=== PATIENT | male | born 1970 | race African-American/Black ===

== ENCOUNTER 2020-01-11 11:00 | Inpatient (IN) | payer OTHER ==
[~2020-01-11] VITALS: Ht 170.2 cm; Wt 81.6 kg
[~2020-01-11 11:00] MED LIST: Dexamethasone 20mg/5ml IVP ONE; ceFAZolin sod 1 GM in NS 55 ML IVPB ONE
[2020-01-18] VITALS (20 sets, daily range): BP systolic 118–157; BP diastolic 72–95
[2020-01-18] MEDS ORDERED: LR 1000ml 1,000 ML IVLG SCH (06:25)
[2020-01-18] MEDS ORDERED: Rocuronium Bromide 50mg/5ml Inj IV ONE (06:29)
[2020-01-18] MEDS ORDERED: HYDROcodone/Acetamin 5/325 tab ORAL PRN (06:30)
[2020-01-18] MEDS ORDERED: Ketorolac 30mg Inj IV PRN ×2 (06:30)
[2020-01-18] MEDS ORDERED: Labetalol 5mg/ml 20ml vial IV PRN (06:30)
[2020-01-18] MEDS ORDERED: Hydromorphone 0.5mg/0.5ml inj IVP PRN (06:30)
[2020-01-18] MEDS ORDERED: oxyCODONE HCL/Acetaminophen 5/325mg ORAL PRN (06:30)
[2020-01-18] MEDS ORDERED: HYDROcodone/Acetamin 7.5/325 tab ORAL PRN (06:30)
[2020-01-18] MEDS ORDERED: Metoclopramide 10mg/2ml Inj IVP PRN (06:30)
[2020-01-18] MEDS ORDERED: Acetaminophen (Non formulary) 100 ML IV ONE (06:30)
[2020-01-18] MEDS ORDERED: DiphenhydrAMINE 50mg/ml Inj IVP PRN (06:30)
[2020-01-18] MEDS ORDERED: fentaNYL 100 mcg/2 mL IV PRN (06:30)
[2020-01-18] MEDS ORDERED: Meperidine 25mg/0.5ml Inj (FOR RIGORS ONLY) IV PRN (06:30)
[2020-01-18] MEDS ORDERED: Midazolam 2mg/2ml Inj IVP PRN (06:30)
[2020-01-18] MEDS ORDERED: LORazepam Inj 2mg/ml 1ml IV PRN (06:30)
[2020-01-18] MEDS ORDERED: Atropine Sulfate 0.4mg/ml inj IVP PRN (06:30)
[2020-01-18] MEDS ORDERED: ATORVASTATIN CA80 MG ORAL (06:38)
[2020-01-18] MEDS ORDERED: Heparin 5000 units/ml inj ONE (06:43)
[2020-01-18] MEDS ORDERED: Thrombin 5000 units TOPIC ONE (06:43)
[2020-01-18] MEDS ORDERED: Bacitracin 50000 Units Vial ONE (06:43)
[2020-01-18] MEDS ORDERED: Ropivacaine 5mg/ml Vial 20ml INJ ONE (06:43)
[2020-01-18] MEDS ORDERED: Gelfoam Size TOPIC ONE (06:43)
[2020-01-18] MEDS ORDERED: Lidocaine 1% Plain 30 ml INJ ONE ×2 (06:43→06:52)
[2020-01-18] MEDS ORDERED: ASPIR 8181 MG ORAL (06:47)
[2020-01-18] MEDS ORDERED: HYDROCODON-ACE1 EA13 ORAL (06:47)
[2020-01-18] MEDS ORDERED: GABAPENTIN600 MG ORAL (06:47)
[2020-01-18] MEDS ORDERED: OMEPRAZOLE20 M2 ORAL (06:47)
[2020-01-18] MEDS ORDERED: LISINOPRIL10 MG ORAL (06:47)
--- NOTE | 2020-01-18 06:50 | Immediate Post-Op Evaluation ---
Immediate Post-Op Evalulation Immediate Post-Op Evalulation Procedure: ALIF L5-S1 Date of Evaluation: Jan 18, 2020 Time of Evaluation: 09:49 IV Fluids: 800 LR Blood Products: 0 Estimated Blood Loss: 50 Urinary Output: 200 Blood Pressure Systolic: 157 Blood Pressure Diastolic: 92 Pulse Rate: 89 Respiratory Rate: 16 O2 Sat by Pulse Oximetry: 100 Temperature (Fahrenheit): 97 Pain Score (1-10): 2 Nausea: No Vomiting: No Complications 0 Patient Status: awake, reacts, patent, extubated, none Hydration Status: adequate Dru Grams Ancef IV Given Within 1 Hr of Incision: Yes Time Given: 07:31 Calderon Sinclair MD Jan 18, 2020 06:49
[2020-01-18] MEDS ORDERED: Lidocaine 1% MPF 10mg/ml 5ml ONE (06:51)
[2020-01-18] MEDS ORDERED: Dexamethasone 4mg/ml vial ONE (06:51)
[2020-01-18] MEDS ORDERED: Sodium Chloride 10ml vial INJ ONE (06:51)
[2020-01-18] MEDS ORDERED: fentaNYL 100 mcg/2 mL IV ONE (06:52)
[2020-01-18] MEDS ORDERED: Sterile Water Irrig 1000ml IRRIG ONE (07:00)
[2020-01-18] MEDS ORDERED: LR 1000ml ONE (07:00)
[2020-01-18] MEDS ORDERED: NS Irrig 1000ml ONE (07:00)
[2020-01-18] MEDS ORDERED: Dexamethasone 20mg/5ml IVP ONE (07:00)
[2020-01-18] MEDS ORDERED: Neostigmine 1mg/ml 10ml Inj ONE (07:00)
[2020-01-18] MEDS ORDERED: ceFAZolin sod 1 GM in NS 55 ML IVPB ONE (07:00)
[2020-01-18] MEDS ORDERED: Propofol 200mg/20ml IV ONE (07:00)
--- NOTE | 2020-01-18 07:10 | Anethesia Preoperative Eval ---
Anesthesia Pre-op PMH/ROS General Date of Evaluation: Jan 18, 2020 Time of Evaluation: 07:06 Anesthesiologist: Dottie ASA Score: ASA 2 Mallampati Score Class I : Soft palate, uvula, fauces, pillars visible Class II: Soft palate, uvula, fauces visible Class III: Soft palate, base of uvula visible Class IV: Only hard plate visible Mallampati Classification: Class II Surgeon: Domingo Diagnosis: Back Pain Surgical Procedure: ALIF L5-S1 Anesthesia History: none Family History: no anesthesia problems Allergies: Coded Allergies: No Known Allergies (Unverified , 01/18/20) Medications: see eMAR Patient NPO?: Yes NPO Date: Jan 17, 2020 NPO Time: 1999 Past Medical History Cardiovascular: Reports: HTN Neurologic/Psychiatric: Reports: depression/anxiety Anesthesia Pre-op Phys. Exam Physician Exam Last Vital Signs Date Time Temp Pulse Resp B/P (MAP) Pulse Ox O2 Delivery O2 Flow Rate FiO2 01/18/20 06:55 Room Air 01/18/20 06:34 97.4 65 18 124/82 (96) 99 Constitutional: NAD Neurologic: CN 2-12 intact Cardiovascular: RRR Respiratory: CTA Gastrointestinal: S/NT/ND Airway Exam Mallampati Score: Class II MO: full ROM: full Teeth: missing Anesthesia Pre-op A/P Risk Assessment & Plan Assessment: ASA 2 Plan: GA, SED, GlideScope Status Change Before Surgery: No Pre-Antibiotics Dru Grams Ancef IV Given Within 1 Hr of Incision: Yes Time Given: 07:31 Calderon Sinclair MD Jan 18, 2020 07:09
--- NOTE | 2020-01-18 07:10 | 48 Hour Post Anesthesia Eval ---
Post Anesthesia Evaluation Procedure: ALIF L5-S1 Date of Evaluation: Jan 18, 2020 Time of Evaluation: 12:12 Blood Pressure Systolic: 134 0: 81 Pulse Rate: 82 Respiratory Rate: 18 Temperature (Fahrenheit): 98 O2 Sat by Pulse Oximetry: 100 Airway: patent Nausea: No Vomiting: No Pain Intensity: 2 Hydration Status: adequate Cardiopulmonary Status: Stable Mental Status/LOC: patient returned to baseline Follow-up Care/Observations: 0 Post-Anesthesia Complications: 0 Follow-up care needed: N/A Calderon Sinclair MD Jan 18, 2020 07:10
--- NOTE | 2020-01-18 07:10 | Pre-Procedure Note/Attestation ---
Pre-Procedure Note/Attestation Complete Prior to Procedure Planned Procedure: not applicable Procedure Narrative: ALIF L5-S1 anterior plate fixation possible posterior Pedicle screw instrumentation Indications for Procedure Pre-Operative Diagnosis: severe post trauma LS spine pain, instability. Attestation I attest that I discussed the nature of the procedure; its benefits; risks and complications; and alternatives (and the risks and benefits of such alternatives ), prior to the procedure, with the patient (or the patient's legal civil rights representative). I attest that, if there was a reasonable possibility of needing a blood transfusion, the patient (or the patient's legal civil rights representative) was given the [facility] standardized written summary, pursuant to the Jose R Kp Blood Safety Act ([place] Health and Safety Code # 1645, as amended). I attest that I re-evaluated the patient just prior to the surgery and that there has been no change in the patient's H&P, except as documented below: Carlos Manuel Lane MD Jan 18, 2020 07:10
[2020-01-18] MEDS ORDERED: DICLOFEN 3%-HYA30 GM TP (07:21)
[2020-01-18] MEDS ORDERED: HYDROcodone/Acetamin 10/325 tab ORAL PRN (08:15)
[2020-01-18] MEDS ORDERED: DiphenhydrAMINE 25mg Tab ORAL PRN (08:15)
[2020-01-18] MEDS ORDERED: PCA Education Pamphlet MISC ONE (08:15)
[2020-01-18] MEDS ORDERED: HYDROmorphone 1mg/ml Carpuject SUBQ PRN (08:15)
--- NOTE | 2020-01-18 08:15 | Consultation ---
DATE OF CONSULTATION: 01/18/2020 CONSULTING PHYSICIAN: Ramon Vasquez M.D. REFERRING PHYSICIAN: Carlos Manuel Lane M.D. REASON FOR CONSULTATION: Acute pain consult. Dear Dr. Carlos Manuel Lane, Thank you kindly for consulting me to evaluate and render an opinion as to how to proceed in the management of the patient's acute postoperative lumbar spine pain after his lumbar spine fusion surgery today with instrumentation. The patient is a pleasant gentleman, who injured his lumbar spine after a [id number] incident at [facility] in [place]. You consulted me to help with this patient's pain control postoperatively. I saw the patient at bedside with the nurse, MUMTAZ Charlton. I discussed the case with yourself, Dr. Lane, along with the hospital pharmacist and the orthopedic floor charge nurse. I reviewed multiple records from the patient's medical chart including preoperative records from Dr. Stein along with diagnostic testing from December 2019. I reviewed multiple records from today's date of surgery at [facility], January 18, 2020, including records from the surgery suite, the pharmacy, and nursing department. PAST MEDICAL HISTORY: 1. Acute lumbar spine pain with a scheduled lumbar spine fusion surgery with instrumentation by Dr. Carlos Manuel Lane in December 2019. 2. Slip and fall accident. 3. GERD. 4. Hypertension. 5. Hyperlipidemia. 6. Kidney stones. ALLERGIES: Tramadol. PAST SURGICAL HISTORY: Carpal tunnel surgery and diagnostic laparotomy in 1982 to check for internal bleeding. SOCIAL HISTORY: The patient drinks alcohol socially. He denies cigarette usage, but does smoke several cigars each day. He also uses medical marijuana for pain control on a regular basis. REVIEW OF SYSTEMS: Per Dr. Stein. FAMILY HISTORY: Noncontributory. PHYSICAL EXAMINATION: VITAL SIGNS: Age 49. Height 5 feet 7 inches Weight 177 pounds. Body-mass index 28. Vital signs in the medical record. GENERAL: Pleasant demeanor. HEENT: Normocephalic and atraumatic. Extraocular muscles intact. No Cuellar palsy. No Dee syndrome. Poor dentition. EXTREMITIES: Moving all extremities x4. NEUROLOGIC: Detailed neurologic exam per Dr. Lane. MUSCULOSKELETAL: Pain with range of motion of lumbar spine. CHEST: Clear to auscultation. HEART: Regular rate and rhythm. Positive S4. Normal S1, S2. No S3 appreciated. GENITOURINARY: Deferred. DIAGNOSTIC TESTING: Shows laboratory studies from December 27, 2019, glucose 71, BUN 20, creatinine 1.1, sodium 140, potassium 4.2, chloride 108, bicarb 21, calcium 9.0. Total protein 7.9, albumin 4.1. Total bilirubin 0.4, alkaline phosphatase 86, AST 27, AST 23. Hemoglobin A1c 5.9. PTT 32, INR 1.0. White count 9, hematocrit 44, platelets 270,000. Urinalysis, negative. MRSA screening from the nasal, negative. Urine culture, negative. Hepatitis B and C and HIV, all negative. Preoperative 12-lead EKG shows heart rate 59, normal sinus rhythm, no evidence for acute cardiac ischemia. Echocardiogram shows mild global hypokinesis with an ejection fraction of 45% to 50%. Cardiac stress testing shows clinically negative for ischemia. EKG, negative for ischemia. Preoperative chest x-ray on December 27, 2019, shows normal chest exam. IMPRESSION: 1. Acute lumbar spine pain with a scheduled lumbar spine fusion surgery with instrumentation by Dr. Carlos Manuel Lane in December 2019. 2. Slip and fall accident. 3. GERD. 4. Hypertension. 5. Hyperlipidemia. 6. Kidney stones. TREATMENT RECOMMENDATIONS: I have recommended the following analgesic plan to help with this patient's pain control postoperatively. Recently, the patient has been using [place] 10/325 tablets at home up to 4 tablets a day. He states he has no side effects from this medication. His only allergy is tramadol. I will start him on a Dilaudid DEPARTMENT SUPERVISOR with 0.2 mg demand dose at 10-minute lockout and a 4 mg 4-hour limit. Additionally, I have ordered breakthrough dose of Dilaudid 1 mg subcutaneously every three hours p.r.n. for severe breakthrough pain. The patient does use [place] tablets without any difficulty. I have ordered [place] 10/325 one tablet orally every three hours p.r.n. for [id number] pain. The patient denies using 2 tablets at a time, so I would hold off on this dosing for now of using 2 tablets. Hopefully, the usage of the Dilaudid DEPARTMENT SUPERVISOR with p.r.n. subcutaneous Dilaudid and oral 1 tablet of [place] will be sufficient. I will add ynhsm-yyv-yrvyp Marinol 2.5 mg every 8 hours to help provide baseline analgesia, as the patient can tolerate medical marijuana at home without difficulties. He does not appear to be anxious. I would hold off on the class of benzodiazepines at this time. I will make available Soma 350 mg orally every 8 hours in case of muscle spasm symptoms. I will add Tylenol as an antipyretic. With his smoking history, I would definitely recommend an incentive spirometer in order to encourage good pulmonary toilet. He does use Prilosec on daily basis. I have ordered 40 mg of Protonix nightly for GI ulcer prophylaxis. I have also ordered p.r.n. dose of Mylanta 30 mL q.6 hours in case of any GERD symptom exacerbation. I have ordered Benadryl 25 mg orally every 6 hours in case of any itching complaints. I have ordered Zofran 4 mg intravenously every 4 hours p.r.n. as a rescue antiemetic. I will defer DVT prophylaxis to the surgeon. I will provide p.r.n. dose of clonidine in case of hypertensive issues. I will also restart the patient's baseline Neurontin at the 600 mg dose 3 times a day, which the patient has been using on a regular basis. We will follow the patient's advancement with physical therapy as well as advancement with zoroastrian of bowel function after the patient's ALIF surgical procedure. Ramon Vasquez M.D. DR: Wilmar JOB#: [id number] CC:
--- NOTE | 2020-01-18 09:08 | NUR ---
CASE MANAGEMENT: INITIAL REVIEW 49 YO M PRESENTED TO HOSPITAL FROM HOME FOR SURGERY PMHx: Acute lumbar spine pain with a scheduled lumbar spine fusion surgery with instrumentation by Dr. Carlos Manuel Lane in December 2019. Slip and fall accident. GERD. Hypertension. Hyperlipidemia. SI:LUMBAR INSTABILITY T 97.4 HR 65 RR 18 B/P 124/82 SATS 99% ON RA LABS: NONE IS: OR MEDS PATIENT ADMITTED TO SAME DAY SURGERY 01/18/2020 @ DCP: HOME PLAN OF CARE: Procedure: ALIF L5-S1 Addendum: 01/18/20 at 0913 by Gely Jefferson CM INTERSWATHI YEH
[2020-01-18] MEDS ORDERED: Glycopyrrolate 0.2mg/ml 1ml Vial ONE (09:10)
[2020-01-18] MEDS: D5 1/2NS 1,000 ML IV SCH ×3 (09:11→23:56)
--- NOTE | 2020-01-18 09:11 | Brief Operative Note ---
Immediate Post Operative Note Operative Note Pre-op Diagnosis: severe post trauma LS spine pain, instability. Procedure: Hemivertebrectomy L5 ALIF L5-S1 Anterior Plate L5-S1 interbody device osteopromotive materal xray magnification Post-op Diagnosis: same as pre-op Findings: consistent w/pre-op dx studies Surgeon: oDmingo MCCULLOUGH Additional Surgeons: Noel MCCULLOUGH Anesthesiologist: Dottie MCCULLOUGH Anesthesia: general Specimen: yes Complications: none Condition: stable Fluids: anesthesia Estimated Blood Loss: minimal Drains: none Implant(s) used?: Yes Carlos Manuel Lane MD Jan 18, 2020 09:11
[2020-01-18] MEDS ORDERED: Naloxone 0.4mg/ml Inj IVP PRN (11:00)
[2020-01-18] MEDS ORDERED: Rate Change PCA 1 Each MISC PRN (11:00)
[2020-01-18] MEDS ORDERED: PCA HYDROmorphone 1mg/ml 30 ML IV PRN (11:00)
--- NOTE | 2020-01-18 11:00 | NUR ---
NURSE NOTES: patient transferred from OPS placed to [facility]- with stable condition via hospital bed. received report from Sana/PACU. s/p ALIF L5-S1. under Dr. Vasquez care. alert and oriented. verbally responsive. dressing on anterior lower abd, dressing intact. no bleeding noted. no respiratory distress noted on 2L via NC. pain on abd with JOB CHECKER pump. IV on RFA running LR. F/C draining. intact, yellow. clear. SCD on bilat lower extremities. checked and counted belongings with OPS nurse and patient. bed in the lowest position and locked. call light within reach. will continue to provide plan of care.
--- NOTE | 2020-01-18 11:29 | Operative Note - Dictated ---
DATE OF OPERATION: 01/18/2020 VASCULAR SURGEON: Moe Cohen M.D. SPINE SURGEON: Carlos Manuel Lane M.D. PREOPERATIVE DIAGNOSIS: Lumbar pain. POSTOPERATIVE DIAGNOSIS: Lumbar pain.` PROCEDURE PERFORMED: Anterior retroperitoneal exposure of L5-S1, right retroperitoneal approach. INDICATIONS: A very pleasant gentleman, who was seen in my office prior to surgery. He has had a prior laparotomy for intra-abdominal bleeding after blunt trauma over 10 years ago. He denies any history of deep venous thrombosis or bleeding complications. He has had no prior anterior spine surgery, history of deep venous thrombosis or bleeding complications were described. He has been made aware of the risks of vascular surgery including vascular injury, possible blood transfusion, and deep venous thrombosis. DESCRIPTION OF FINDINGS: A low vertical midline incision was used. A right retroperitoneal approach was used. There was no peritoneal or ureteral violation. There was no vascular injury. Exposure of L5-S1 was obtained below the iliac bifurcation and confirmed via fluoroscopy. On completion, the peritoneum and ureter were intact. The iliac vessels are intact. Blood loss was less than 50 mL. The patient has palpable femoral pedal pulses and normal pulse oximetry and neurologic monitoring in both extremities on completion. DESCRIPTION OF PROCEDURE: The patient was taken to the operating room. General anesthesia was used. Antibiotics were given. The patient had been prepped and draped. Appropriate time-out for procedure were taken. A low vertical midline incision made infraumbilically. The anterior fascia was incised longitudinally in the midline. A plane was identified posterior to the right rectus abdominis developed posterolaterally towards the patient's right. Retroperitoneal space was entered below the arcuate line. The peritoneum and ureter were mobilized towards the patient's left exposing the right common iliac artery and vein. Dissection was carried superiorly around the right iliac vessels towards the anterior surface of L5-S1 palpated. The peritoneum and ureter were swept towards the patient's left exposing the anterior surface of L5-S1. The medial border of the left iliac vein was visualized and swept laterally and then the Omni retractor blades were set in place. Fluoroscopy was then used to confirm the appropriate level and instrumentation performed at L5-S1 dictated separately. On completion, retractor gently removed. The peritoneum and ureter were intact. Iliac vessel intact. The anterior fascia was then closed with #1 PDS in a running fashion and the skin, subcutaneous tissue were closed with 3-0 Vicryl and 4-0 Monocryl running subcuticular closure technique. Estimated blood loss less than 50 mL. Complications, none. Moe Cohen M.D. DR: ANGEL JOB#: [id number] CC:
--- NOTE | 2020-01-18 13:47 | Diagnostic Imaging Report ---
Indication: Back pain Technique: Intraoperative fluoroscopic imaging submitted for archival the PACS Operating physician: Tello Lane Total fluoroscopy time: 21.4 seconds Total fluoroscopy dose: 13.16 mGy Total number of fluoroscopic images submitted to PACS: 3 Comparison: None Findings: Intraoperative fluoroscopic imaging submitted for archival the PACS. Images demonstrate anterior fusion at L5-S1 by means of an anterior plate affixed by 2 screws at each level. There is also an interbody disc spacer. Please see operative report IMPRESSION: Intraoperative fluoroscopic imaging from spinal surgery. Please see operative report.
[2020-01-18] MEDS: Dronabinol 2.5mg Cap ORAL SCH ×2 (13:59→21:02)
[2020-01-18] MEDS: ceFAZolin sod 1 GM in D5W 55 ML IV SCH ×2 (16:50→23:56)
--- NOTE | 2020-01-18 17:56 | NUR ---
NURSE NOTES: patient was tolerated well with liquid diet for lunch and dinner. no n/v, feeling comfortable. advanced diet to regular from on 01/19/[address] order. order noted and carried out.
--- NOTE | 2020-01-18 18:56 | NUR ---
NURSE NOTES: Spoke to regarding patient and new order received. Order read back and carried out.
--- NOTE | 2020-01-18 19:00 | NUR ---
NURSE NOTES: Received report from MUMTAZ Romero. AAO x 4, on room air. Able to make needs known. Pt c/o pain 5/10 on back. Pain controlled by SOLID WASTE ANALYST. IV site intact and running IVF. No acute distress noted. Bed locked, lowest position, alarm on , side rails up, call light within reach. Will continue to monitor.
[2020-01-18] MEDS: PCA shift volume MISC SCH (19:07)
--- NOTE | 2020-01-18 19:20 | NUR ---
HAND-OFF: Report given to MUMTAZ Lerma
--- NOTE | 2020-01-18 19:45 | Operative Note - Dictated ---
DATE OF OPERATION: 01/18/2020 ADMITTING/PREOPERATIVE DIAGNOSES: Posttraumatic back pain, lumbar spine instability. POSTOPERATIVE DIAGNOSES: Posttraumatic back pain, lumbar spine instability. SURGEON: Carlos Manuel Lane, Ph.D., M.D. CO-SURGEON: Moe Cohen, Vascular Surgery. Please see separate report with Dr. Lane as financial sales assistant for exposure and closure. OPERATIVE PROCEDURE: 1. Diego vertebrectomy L5. 2. Anterior lumbar interbody fusion. 3. Correction deformity L5-S1. 4. Anterior internal plate fixation L5-S1. 5. Placement of titanium interbody device without internal fixation screws in the interbody device. 6. Placement of osteopromotive material L5-S1. 7. Intraoperative fluoroscopy/x-rays interpreted by surgeon. 8. High-powered magnification dissection. 9. SSEP monitoring. ANESTHESIOLOGIST: Calderon Sinclair M.D. general with intubation. ESTIMATED BLOOD LOSS: 50 mL. COMPLICATIONS: None. POSTOP CONDITION: Good/stable. SPECIMEN: Disk fragments to pathology. PROCEDURE IN DETAIL: The patient was brought to the operating room and in the supine position, general anesthesia with intubation was induced. IV antibiotics, IV Decadron were administered 30 minutes prior to incision time. With the patient in the supine position, the anterior abdomen was sterilely prepped and draped free in usual sterile fashion. Anterior incision was placed by Dr. Cohen sharply through dermis and epidermis. Please see separate report. L5-S1 interval was exposed and identified in the AP and lateral planes with a spinal needle placed into the disk space. Fluoroscopic imaging under strict sterile conditions. Determination of midline as well as correct level. A vertebral body defect was noted inferior L5 in the AP dimensions to the posterior aspect of the vertebral body. After formal annulotomy followed with diskectomy to but not through the posterior longitudinal ligament and denuding of the endplates of cartilaginous end plates, the defect was noted to be subset. Interbody reconstruction could not be undertaken with a step-off in the inferior L5 vertebral body. Under high-power magnification, a diego vertebrectomy was performed at the inferior aspect of the L5 vertebral body with fluoroscopic assisted guidance. Trials were utilized to determine graft requirements with a 16 mm titanium lordotic graft utilized. The graft was packed internally with osteopromotive material with local autograft. Under direct nntnpzgykve-dodx-pjlyohq magnification and fluoroscopic guidance, the graft was impacted into the interspace. SSEP monitoring stable at all times. Anterior internal plate fixation was undertaken in compressive fashion placed from the L5 to the S1 interval with fluoroscopic guidance utilizing AP and lateral planes. Screws in the body position of L5 and S1 were undertaken. excellent. Locked into position. Wound was irrigated with antibiotic-containing saline. Exploration did not reveal any obvious laceration or excoriation of vital structures. Please see separate note for closure, Dr. Cohen. After closure of the abdomen and placement of bandage, the patient was awakened and extubated in the operating room, and transported to postop recovery in good stable condition. Carlos Manuel Lane M.D. DR: GABBY JOB#: [id number] CC:
[2020-01-19] VITALS (7 sets, daily range): BP systolic 108–126; BP diastolic 55–86
[2020-01-19] MEDS: Dronabinol 2.5mg Cap ORAL SCH ×3 (06:04→20:47)
[2020-01-19] MEDS: ceFAZolin sod 1 GM in D5W 55 ML IV SCH (06:30)
[2020-01-19] MEDS: PCA shift volume MISC SCH ×2 (07:10→19:23)
--- NOTE | 2020-01-19 07:15 | NUR ---
HAND-OFF: Report given to MUMTAZ Ferrer.
--- NOTE | 2020-01-19 07:45 | NUR ---
NURSE NOTES: Patient awake, alert x4; on room air, no sing of distress and shortness of breath; no sing of chest pain; IV Right For-Arm 18G D51/2NS @125cc running; Hilton in place, drains yellow urine; dressing at the abdomen dry and intact; SAMPLE BOX MAKER Volume 25.3cc; side rails up x2, breaks engaged, bed at lowest position, breaks engaged; call light within reach; will keep monitoring.
[2020-01-19] MEDS: Lisinopril 10mg tab ORAL SCH (08:25)
[2020-01-19] MEDS: Tamsulosin 0.4mg cap ORAL SCH (08:26)
--- NOTE | 2020-01-19 08:45 | Progress Note ---
DATE: 01/19/2020 ACUTE PAIN MANAGEMENT PHYSICIAN PROGRESS NOTE MEDICATIONS: Medication administration record reviewed. Medications include IV fluids, lisinopril, Flomax, Protonix, Neurontin, Marinol, Dilaudid UNIT CONTROL WORKER. P.r.n. medications include [place], Dilaudid, Soma, Tylenol, Benadryl, Zofran, Mylanta, Catapres, Narcan. LABORATORY STUDIES: No interval laboratory studies. PHYSICAL EXAMINATION: VITAL SIGNS: Blood pressure 113/70, respirations 18, pulse 78, afebrile, oxygen saturation 97%. I spent over 60 minutes in consultation today. I saw the patient at the bedside with the charge nurse RN, Ophelia. I discussed the case with the surgeon, Dr. Lane. After the patient's ALIF surgery procedure yesterday, the patient is doing very well. He denies any nausea symptoms. I spoke with the recovery room nurse RN, Charli. We started the Dilaudid UNIT CONTROL WORKER in the recovery room and the patient has been responding well after his anterior internal plate fixation procedure at L5-S1. He remains on clear liquid diet until we received notifications from the patient that he has improved bowel function. He has minimal bowel sounds, he is not yet burping, and certainly is not passing flatus. He has tolerated a clear liquid tray yesterday for lunch and for dinner. We will continue him on clear liquids for now and we may advancing to full liquids later in the day. He will continue on IV fluids for hydration and the patient is drinking well. I will restart his lisinopril in case of hypertension. He chronically uses lisinopril 10 mg daily. His blood pressure readings here in the hospital have been reasonable, and the patient also has a p.r.n. dose of clonidine available as needed. The patient continues to use his Dilaudid UNIT CONTROL WORKER, which I would continue this morning. Later in the day, I will discontinue the UNIT CONTROL WORKER and transition him on to oral [place] pills, which he can tolerate on empty stomach at home. Additionally, I have added p.r.n. doses of Soma and subcutaneous Dilaudid available. The patient denies anxiety and does not appear to be anxious. This class of agents should not be necessary at this time. Physical therapy training, we will start later today. Hopefully with improved ambulation, the patient will have improved bowel function. So, we can advance his diet to help expedite discharge planning. The patient's last bowel movement was 48 hours ago. Currently, the patient will be held from the laxatives until the surgeon, Dr. Lane permits. I left the prescription for [place] for outpatient usage. The patient will have assistance with his daughter once he discharges from the hospital. The patient agrees with the plan. Ramon Vasquez M.D. DR: ROSA JOB#: [id number] CC:
--- NOTE | 2020-01-19 09:00 | NUR ---
NURSE NOTES: Patient encouraged to use Incentive Spirometer; patient teaching provided at the bed side; Patient returned demonstration. Will keep monitoring.
[2020-01-19] MEDS: D5 1/2NS 1,000 ML IV SCH (09:06)
--- NOTE | 2020-01-19 10:00 | NUR ---
PT Note PT silas completed, treatment initiated. Patient is very cooperative and motivated. Patient needs PT to educate and instructed on proper body mechanics and proper log rolling techniques to enable him to return home. Addendum: 01/19/20 at 1603 by STEVE PACHECO PT Amended: Links added.
--- NOTE | 2020-01-19 12:30 | NUR ---
NURSE NOTES: Patient stated that he is able to pass gas.
--- NOTE | 2020-01-19 15:31 | NUR ---
NURSE NOTES: MD Vasquez called and gave me the order to change patient's diet for dinner and tomorrow breakfast; also change the rate of the continuous fluid patient getting; Order carried out as order given by MD Vasquez;
--- NOTE | 2020-01-19 15:32 | NUR ---
NURSE NOTES: Per MD Vasquez, I removed NC 3 Liter and re-asses patient; patient sat 97% at room air; will keep monitoring.
[2020-01-19] MEDS ORDERED: D5 1/2NS 1,000 ML IV SCH (16:00)
--- NOTE | 2020-01-19 19:15 | NUR ---
NURSE NOTES: Received patient on bed, awake and verbally responsive. on room air, no sob. with iv line on the right forearm running d5 1/2 ns @ 50 ml. with davidson catheter in placed draining well. with hot mill roller of hydromorphone. per previous nurse" the diet was changed to regular". with intact dressing. reiterated to call or ask for help or use the call light. bed locked and in lowest position. call light and light button within easy reach. will continue plan of care.
--- NOTE | 2020-01-19 19:27 | NUR ---
HAND-OFF: Report given to MUMTAZ Garcia.
[2020-01-20] VITALS: BP 121/73
--- NOTE | 2020-01-20 01:21 | NUR ---
NURSE NOTES: patient is sleeping comfortably on bed. no sob. with ongoing ivf of d5 1/2 ns @ 50. with davidson cath in placed. bed locked and in lowest position. call light and light button within easy reach. will continue plan of care.
[2020-01-20 04:00] VITALS: BP 130/70
[2020-01-20] MEDS: Dronabinol 2.5mg Cap ORAL SCH ×2 (05:51→13:59)
--- NOTE | 2020-01-20 06:44 | NUR ---
at 0600 am d.c davidson catheter as ordered. at 06:[address] krueger with an order to d/c international broadcast music librarian and iv fluid and shift to heplock.charge nurse made aware. Addendum: 01/20/20 at 0700 by Keisha Murillo RN NURSE NOTES:
--- NOTE | 2020-01-20 07:20 | NUR ---
HAND-OFF: Report given to shoaib gibbs.
--- NOTE | 2020-01-20 07:30 | NUR ---
NURSE NOTES: Received report from Keisha Paniagua RN. Patient A&Ox4. On room air, no signs of distress or labored breathing. IV intact, patent, and saline locked. Complains of pain. Bed in lowest position with call light in reach. Will continue with plan of care.
[2020-01-20 08:00] VITALS: BP 127/89
[2020-01-20] MEDS: Lisinopril 10mg tab ORAL SCH (09:00)
[2020-01-20] MEDS ORDERED: Docusate 100mg cap ORAL SCH (09:00)
[2020-01-20] MEDS: Tamsulosin 0.4mg cap ORAL SCH (09:00)
--- NOTE | 2020-01-20 10:15 | Progress Note ---
DATE: 01/20/2020 ACUTE PAIN MANAGEMENT PHYSICIAN PROGRESS NOTE MEDICATIONS: Medication administration record reviewed. Medications include Tylenol, Mylanta, Soma, Catapres, Benadryl, Marinol, Neurontin, [place], Dilaudid, Zestril, Protonix, Flomax, and Zofran. LABORATORY STUDIES: No interval laboratory studies. VITAL SIGNS: Within normal limits. Afebrile, pulse 78, respirations 20, blood pressure 130/70, and oxygen saturation 96% on room air. I spent over 60 minutes in consultation today. I saw the patient at bedside and discussed the case with the surgeon, Dr. Lane, along with the charge nurse, MUMTAZ Riuz. I saw the patient at the bedside with the nurse, MUMTAZ Paniagua. Yesterday, the patient started passing positive flatus. He tolerated full-liquid diet for lunch and I advanced him to chopped meal for dinner. This also was well tolerated with no nausea symptoms. We will advance to regular diet this morning. I have added Colace as a stool softener to help with his upcoming bowel movement. We will continue to wait for complete orthodoxy of bowel function as evidenced by positive bowel movement before he is able to discharge home from the hospital The patient has been ambulating very well with physical therapy. He moves in and out of bed with relative ease, albeit postoperative pain. He is using the scheduled Marinol with good efficacy. I have decided to stop the HYDROELECT[employer]IC PLANT ELECTRICAL ENGINEER this morning to encourage movement in and out of bed. Since he also is drinking adequate oral fluid intake, I will Hep-Lock his IV fluids. The patient is able to ambulate greater than 200 feet in the hallways. We would remove the Hilton catheter this morning and we will wait for normal urinary voiding. I dosed the patient with Flomax to help reduce urinary retention issues in this middle-aged man. The patient is breathing comfortably and I encouraged aggressive usage with incentive spirometer, which is at the bedside. I left a prescription for [place] for outpatient usage. The patient does have assistance at home with his daughter and a emery wheel molder, who will be able to take the patient home from the hospital once he has his bowel movement. I will continue his current analgesic regimen at this time with p.r.n. Portland and subcutaneous Dilaudid, now HYDROELECT[employer]IC PLANT ELECTRICAL ENGINEER unit has been discontinued. The patient agrees with the plan. Ramon Vasquez M.D. DR: Wilmar JOB#: [id number] CC:
[2020-01-20 12:00] VITALS: BP 105/75
--- NOTE | 2020-01-20 15:26 | NUR ---
NURSE NOTES: Patient discharged in stable condition via private vehicle with friend. Discharge protocol followed.
--- NOTE | 2020-01-21 11:24 | Discharge Summary ---
Discharge Summary Hospital Course Date of Admission Jan 18, 2020 at 06:25 Date of Discharge Jan 20, 2020 at 15:18 Admitting Diagnosis Posttraumatic back pain, Lumbar spine instability Reason for Hospitalization: elective surgery HPI Pete Darnell is a 49 year old male who was admitted on Jan 18, 2020 at 06:[address] Vasquez pain specialist Procedures s/p 01/18/[address] 1. Diego vertebrectomy L5. 2. Anterior lumbar interbody fusion. 3. Correction deformity L5-S1. 4. Anterior internal plate fixation L5-S1. 5. Placement of titanium interbody device without internal fixation screws in the interbody device. 6. Placement of osteopromotive material L5-S1. 7. Intraoperative fluoroscopy/x-rays interpreted by surgeon. 8. High-powered magnification dissection. 9. SSEP monitoring. s/p 01/18/[address] Cohen (vascular approach) Anterior retroperitoneal exposure of L5-S1, right retroperitoneal approach. Hospital Course status post surgery course of recovery uneventful initially IV fluids s/p perioperative antibiotic and steroid neurovascular status closely monitored, remained stable incision clean, dry and intact pain management was addressed pain specialist followed; pain was controlled remained hemodynamically stable ambulated with PT fall precautions maintained; safe for ambulation use of incentive spirometry was encouraged while in the bed tolerated diet , IV fluids discontinued GI prophylaxis provided antiemetics were on board as needed blood pressure was managed with POOJA inhibitor and remained stable Flomax continued voided freely bowel regimen instituted patient was stable for discharge discharge instructions provided follow up with surgeon in the office as advised FINAL DIAGNOSES Posttraumatic back pain, Lumbar spine instability s/p Diego-vertebrectomy L5, ALIF L5-S1, anterior Plate L5-S1. interbody device HTN HLD GERD Kidney stones Discharge Condition Upon Discharge: stable Discharge Vital Signs Last Vital Signs Date Time Temp Pulse Resp B/P (MAP) Pulse Ox O2 Delivery O2 Flow Rate FiO2 01/20/20 12:00 98.0 89 20 105/75 (85) 97 01/20/20 09:00 Room Air 01/18/20 11:00 3 Discharge Disposition Patient was discharged home Discharge Instructions Discharge Instructions Special Instructions I have been assigned to complete a D/C Summary on this account. I was not involved in the patient management Josefa Rocha NP Jan 21, 2020 11:24
== END 2020-01-20 15:18 | disposition home or self-care (01) | DRG 460 ==
LOC: SDSOVERFLO 01-18 06:25 → 3E 01-18 10:58
PROC: 4A11X4G Monitoring of Peripheral Nervous Electrical Activity, Intraoperative, External Approach (ICD-10-PCS; principal; 2020-01-18 07:00)
PROC: 0SB40ZZ Excision of Lumbosacral Disc, Open Approach (ICD-10-PCS; principal; 2020-01-18 07:00)
PROC: 0SG30A0 Fusion of Lumbosacral Joint with Interbody Fusion Device, Anterior Approach, Anterior Column, Open Approach (ICD-10-PCS; principal; 2020-01-18 07:00)
DX: M53.2X6 Spinal instabilities, lumbar region (principal); M43.8X7 Other specified deforming dorsopathies, lumbosacral region; M54.5 Low back pain; G89.18 Other acute postprocedural pain; I10 Essential (primary) hypertension; K21.9 Gastro-esophageal reflux disease without esophagitis; E78.5 Hyperlipidemia, unspecified; F17.290 Nicotine dependence, other tobacco product, uncomplicated; F41.8 Other specified anxiety disorders; Z91.81 History of falling; Z87.442 Personal history of urinary calculi; Z98.890 Other specified postprocedural states
CPT/HCPCS: 36415; 72020; 76000; 86850; 86900; 86901; 87081; 94003; 94150; J2405; J2710; J2795